=== PATIENT | female | born 1990 | race Two or more races ===

== ENCOUNTER 2020-12-17 06:00 | Inpatient (IN) ==
[2020-12-17] MEDS ORDERED: D5 1/2 NS 1000 ML 1,000 ML IV ONE (06:52)
[2020-12-17] MEDS ORDERED: BETADINE SOLN ONE (06:52)
[2020-12-17] MEDS ORDERED: PITOCIN ONE (06:52)
[2020-12-17] MEDS ORDERED: D5 1/2 NS 1L W PITOCIN 20 UNITS/L 20 UNITS/1,000 ML BAG IV ONE (06:53)
[2020-12-17] MEDS ORDERED: D5LR 1L W PITOCIN 10 UNITS/L 10 UNITS/1,000 ML BAG IV ONE (06:53)
--- NOTE | 2020-12-17 07:25 | DR.OB ---
OB Quick Note - Assessment/Plan Assessment/Plan: L&D 12/17/20 at 7:15am S-No complaint. O-Afebrile,VSS RKB=[id number] with good LTV, +accel, no decel. CTX=none CVX=2-3cm/50%/-1/VTX AROM with clear fluid. IUPC and FSE placed. A-IUP at 39 3/7 weeks for induction () P-Begin pitocin induction Anticipate
[2020-12-17] MEDS ORDERED: PHENERGAN INJ 25 MG IM PRN ×2 (07:27→12:35)
[2020-12-17] MEDS ORDERED: PITOCIN IVP ONE (07:27)
[2020-12-17] MEDS ORDERED: D5 1/2 NS 1000 ML 1,000 ML IV SCH (07:27)
[2020-12-17] MEDS ORDERED: D5LR 1L W PITOCIN 10 UNITS/L 10 UNITS/1,000 ML BAG IV PRN (07:27)
[2020-12-17] MEDS ORDERED: REGLAN INJ 10 MG VIAL IVP PRN (07:27)
[2020-12-17] MEDS ORDERED: MORPHINE SULFATE INJ 2 MG INJ IVP PRN (07:27)
[2020-12-17] MEDS ORDERED: NUBAIN INJ 200 MG VIAL MULTIDOSE IVP PRN (07:27)
[2020-12-17] MEDS ORDERED: STADOL INJ IVP PRN (07:28)
[2020-12-17 08:06] LABS: BILIRUBIN,URINE NEGATIVE (NEGATIVE); BLOOD/HEMOGLOBIN,URINE NEGATIVE (NEGATIVE); GLUCOSE, URINE NEGATIVE (NEGATIVE); KETONES,URINE NEGATIVE (NEGATIVE); LEUKOCYTE ESTERASE ,URINE 1+ (NEGATIVE); NITRITES,URINE NEGATIVE (NEGATIVE); PH,URINE 6.5 (5.0 - 8.0); PROTEIN,URINE NEGATIVE (NEGATIVE); UROBILINOGEN,URINE NORMAL (NORMAL)
[2020-12-17 08:10] LABS: BLOOD UREA NITROGEN 15 mg/dL (7-18); CALCIUM 8.4 mg/dL (8.5-10.1); CARBON DIOXIDE 25.8 mmol/L (21-32); CHLORIDE 103 mmol/L (98-107); CREATININE 1.05 mg/dL (0.55-1.02); SODIUM 135 mmol/L (136-145); eGFR NON BLACK RACES > 60 (>60)
[2020-12-17 08:14] LABS: APPEARANCE,URINE SLIGHTLY HAZY (CLEAR); COLOR,URINE YELLOW (YELLOW)
[2020-12-17 08:15] LABS: BACTERIA,URINE TRACE /HPF (NEGATIVE); RBC,URINE 0-2 /HPF (0-3); SQUAMOUS EPITHELIAL CELL,UR MODERATE /HPF (NEGATIVE)
[2020-12-17 08:19] LABS: BASOPHILS % (AUTO) 0.6 % (0.2-1.0); EOSINOPHILS # (AUTO) 0.1 x10^3/uL (0.0-0.2); EOSINOPHILS % (AUTO) 1.9 % (0.9-2.9); HEMATOCRIT 33.4 % (36.0-47.0); HEMOGLOBIN 11.6 g/dL (12.0-16.0); LYMPHOCYTES # (AUTO) 1.5 X10^3/uL (1.3-2.9); LYMPHOCYTES % (AUTO) 29.3 % (21.0-51.0); MEAN CORPUSCULAR HEMOGLOBIN 30.6 pg (27.0-34.0); MEAN CORPUSCULAR HGB CONC 34.9 g/dL (33.0-35.0); MEAN CORPUSCULAR VOLUME 87.8 fL (80.0-100.0); MEAN PLATELET VOLUME 9.6 fL (7.4-11.0); MONOCYTES # (AUTO) 0.4 x10^3/uL (0.3-0.8); MONOCYTES % (AUTO) 7.1 % (0.0-13.0); NEUTROPHILS % (AUTO) 61.1 % (42.0-75.0); PLATELET COUNT 187 X10^3/uL (150.0-450.0)
[2020-12-17] MEDS ORDERED: LR 1000 ML IV 1,000 ML IV ONE (08:59)
[2020-12-17] MEDS ORDERED: NS 500 ML IV 500 ML IV ONE (08:59)
[2020-12-17] MEDS ORDERED: STADOL INJ ONE (10:21)
--- NOTE | 2020-12-17 12:34 | DR.OB ---
OB Quick Note - Assessment/Plan Assessment/Plan: Delivery Note 12/17/20 at 11:58 Patient complete and pushing. Head delivered over intact perineum. Nose and mouth bulb suctioned. No nuchal cord. Body delivered over intact perineum. Cord clamped x 2 and cut. Infant handed to attendant. Cord sent for gases. Placenta delivered spontaneously / intact / 3 vessel cord. No CVX tear noted. A small right sidewall tear noted that was superficial but required a few stitches of 0-vicryl for hemostasis. Viable female , VTX/OA, wt=6'6" and 9/9, stable to NBN. Mother stable to RR. LWE=[id number].
[2020-12-17] MEDS ORDERED: MOTRIN TAB 800 MG PO PRN (12:35)
[2020-12-17] MEDS ORDERED: D5 1/2 NS 1000 ML 1,000 ML with PITOCIN 20 UNITS IV SCH ×2 (13:00)
[2020-12-17] MEDS ORDERED: DERMOPLAST PAIN RELIEF SPRAY TOP PRN (13:18)
[2020-12-17] MEDS ORDERED: ADACEL or BOOSTRIX TDaP VACCINE IM ONE (13:18)
[2020-12-17] MEDS ORDERED: MILK OF MAGNESIA PO PRN (13:18)
[2020-12-17] MEDS ORDERED: AMBIEN PO PRN (13:18)
[2020-12-18 05:41] LABS: HEMATOCRIT 26.7 % (36.0-47.0)
[2020-12-18 05:44] LABS: HEMOGLOBIN 9.4 g/dL (12.0-16.0)
[2020-12-18] MEDS ORDERED: PRENATAL PLUS PO SCH (09:00)
[2020-12-18] MEDS ORDERED: ADACEL or BOOSTRIX TDaP VACCINE IM ONE (12:00)
[2020-12-18 12:31] VITALS: BP 100/51
== END 2020-12-18 14:55 | disposition home or self-care (01) | DRG 807 ==
LOC: LD 06:45 → OBS 13:54
PROVIDERS: ADMIT Specialist; ATTEND Specialist
DX: Z23 Encounter for immunization; O34.211 Maternal care for low transverse scar from previous cesarean delivery; N85.8 Other specified noninflammatory disorders of uterus; Z37.0 Single live birth; Z3A.39 39 weeks gestation of pregnancy; O70.0 First degree perineal laceration during delivery; O09.213 Supervision of pregnancy with history of pre-term labor, third trimester